=== PATIENT | male | born 1990 | race Caucasian/White ===

== ENCOUNTER 2025-04-08 01:07 | Emergency (ER) | payer SELFPAY ==
[~2025-04-08] VITALS: Ht 172.7 cm; Wt 149.0 kg
[2025-04-08 01:30] VITALS: O2SAT 100
[2025-04-08] MEDS: KETOROLAC 30MG/ML VIAL IV STA (02:09)
[2025-04-08] MEDS: ONDANSETRON HCL 4MG/2ML INJ IV STA (02:19)
[2025-04-08] MEDS: SODIUM CHLORIDE 0.9% 1,000 ML IV ONE ×2 (02:20→03:12)
[2025-04-08 02:24] LABS: BASOPHILS % 0.5 % (0.0-2.0); EOSINOPHILS % 2.3 % (0.0-5.0); HEMATOCRIT. 47.5 % (42.0-52.0); LYMPHOCYTES % 32.1 % (20.0-50.0); MEAN CORPUSCULAR HEMOGLOBIN 30.6 pg (28.0-32.0); MEAN CORPUSCULAR HGB CONC 33.6 g/dL (31.0-37.0); MEAN CORPUSCULAR VOLUME 91.2 fL (80.0-94.0); MEAN PLATELET VOLUME 9.8 fl (7.4-10.4); MONOCYTES % 12.9 % (2.0-8.0); NEUTROPHILS % 52.2 % (40.0-76.0); PLATELET 172 x1000/uL (130-400); RED BLOOD CELL COUNT 5.21 mill/uL (4.7-6.1); RED CELL DISTRIBUTION WIDTH 13.6 % (11.6-14.6); WHITE BLOOD COUNT 7.9 x1000/uL (4.5-11.0)
[2025-04-08 02:28] LABS: CHLORIDE 104 mEq/L (98-107); POTASSIUM 3.5 mEq/L (3.5-5.1); SODIUM 138 mEq/L (136-145)
[2025-04-08 02:29] LABS: CALCIUM 9.2 mg/dL (8.7-10.4); CARBON DIOXIDE 23 mEq/L (21-32)
[2025-04-08 02:34] LABS: CREATININE 1.2 mg/dL (0.6-1.3); GLUCOSE 127 mg/dL (70-105); PROTHROMBIN TIME 10.9 sec (9.6-11.0)
[2025-04-08 02:35] LABS: ETHANOL BLOOD < 10 mg/dL (<10); UREA NITROGEN BLOOD 8 mg/dL (9-23)
[2025-04-08 02:36] LABS: ALANINE AMINOTRANSFERASE 48 IU/L (10-49); ALBUMIN 4.4 g/dL (3.2-4.8); ASPARTATE AMINOTRANSFERASE 32 IU/L (<34)
[2025-04-08 02:37] LABS: BILIRUBIN DIRECT 0.2 mg/dL (<=3.0); BILIRUBIN TOTAL 0.6 mg/dL (0.1-1.0); PROTEIN TOTAL 7.8 g/dL (6.0-8.3)
[2025-04-08] MEDS: MORPHINE SULFATE 4 MG/ML INJ (FOR IV/IM USE) IV ONE (03:12)
[2025-04-08] MEDS: KETOROLAC 15MG/ML VIAL IV ONE (03:13)
[2025-04-08] MEDS: TAMSULOSIN HCL 0.4MG SR CAPSULE PO NR (04:05)
[2025-04-08] MEDS: CEPHALEXIN 250MG CAPSULE PO NR (04:05)
[2025-04-08] MEDS ORDERED: TAMS-54 MT (04:46)
[2025-04-08] MEDS ORDERED: CEPH500C2 MT (04:46)
[2025-04-08] MEDS ORDERED: IBUP-2029 MT (04:46)
[2025-04-08 05:22] VITALS: BP 106/68; PULSE 92; RESP 14; TEMP 37; O2SAT 100
== END 2025-04-08 05:24 | disposition home or self-care (01) ==
LOC: ER 01:07
DX: N13.2 Hydronephrosis with renal and ureteral calculous obstruction (principal); Q63.1 Lobulated, fused and horseshoe kidney; Z79.899 Other long term (current) drug therapy
CPT/HCPCS: 80076; 80048; 80320; 83605; 83690; 85025; 85610; 87040; 36415; 84145; 74176; 96361; 96374; 96375; 96376; 99285; J1885 ×2; J2405; J2270; J7030; Z7610 ×2; G0480